=== PATIENT | male | born 2000 | race Caucasian/White ===

== ENCOUNTER 2025-09-20 16:27 | Emergency (ER) | payer BC ==
[2025-09-20] MEDS: Rabies Immune Globulin/PF (HyperRAB) 300 UNIT/ML 1 ML SDV IM ONE (18:05)
[2025-09-20] MEDS: Diphtheria,Pertussis(Acell),Tetanus Vaccine 0.5 ML Syringe IM ONE (18:17)
[2025-09-20] MEDS: Rabies Vaccine (Avian) 2.5 Unit Inj Kit IM ONE (18:35)
[2025-09-20] MEDS: Amoxicillin/Clavulanate K 875-125 MG Tab PO ONE (18:39)
== END 2025-09-20 18:59 | disposition home or self-care (01) ==
LOC: FB.ED 16:27
DX: S61.451A Open bite of right hand, initial encounter (principal); S61.452A Open bite of left hand, initial encounter; Z20.3 Contact with and (suspected) exposure to rabies; W55.01XA Bitten by cat, initial encounter
CPT/HCPCS: 90375; 90471; 90472; 90675; 90715; 96372; 99283-25; A9270-GY